=== PATIENT | male | born 1990 | race Caucasian/White ===

== ENCOUNTER 2022-05-05 10:41 | Emergency (ER) | payer BC, SELFPAY ==
--- NOTE | ~2022-05-05 | XR_ITS ---
EXAMINATION: XR tibia fibula LT 2V DATE: 05/05/2022 11:17 INDICATION: Left tibia/fibular pain. TECHNIQUE: Anteroposterior and lateral views of the left tibia and fibula were obtained. COMPARISON: None. FINDINGS: Internal fixation of an old healed proximal tibial metaphyseal fracture with a lateral plate and a co uple additional anterior to posteriorly directed screws. Alignment of the healed fracture remains jenni r-anatomic. There is an additional chronic fracture of the proximal diaphysis of the left fibula whic h has healed with one shaft width medial and one half shaft width anterior displacement. No other fra ctures identified. Joint spaces appear normal on nonweightbearing imaging at the left knee and ankle. No knee or ankle joint effusion. 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 There is soft tissue swelling anterior to the tibia at the junction of the proximal to mid thirds. N o cortical erosions or periosteal reaction. IMPRESSION: 1.. Nonspecific left tissue swelling anterior to the proximal to mid left tibia without underlying ac chenega osseous abnormality. 2. Old internally fixed fracture of the proximal left tibial metaphysis which is in essentially anato liam alignment. 3. Chronic proximal left fibular diaphyseal fracture status post internal fixation which is healed wi th one shaft width medial and one half shaft width anterior displacement. Reviewed, dictated and finalized at location A. IMPRESSION: 1.. Nonspecific left tissue swelling anterior to the proximal to mid left tibia without underlying acute osseous abnormality. 2. Old internally fixed fracture of the proximal left tibial metaphysis which i s in essentially anatomic alignment. 3. Chronic proximal left fibular diaphyseal fracture status post internal fixat ion which is healed with one shaft width medial and one half shaft width anteri or displacement.
[2022-05-05 11:00] VITALS: BP 131/85; PULSE 91; RESP 16; TEMP 36.9; O2SAT 100
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
== END 2022-05-05 12:18 | disposition home or self-care (01) ==
PROVIDERS: Emergency Provider Nurse Practitioner
DX: M79.662 Pain in left lower leg (principal); F17.200 Nicotine dependence, unspecified, uncomplicated
CPT/HCPCS: 73590; 99213; G0463